=== PATIENT | male | born 1995 ===

== ENCOUNTER 2018-01-20 15:04 | Outpatient (REF) | payer OTHER, SELFPAY ==
[2018-01-20 21:42] LABS: HCT 39.3 % (40.0-50.0); HGB 12.9 g/dL (13.5-17.5); Mean Corp. HGB Concentration 32.8 g/dL (32.0-36.0); Mean Corpuscular Hemoglobin 30.9 pg (27.0-33.0); Mean Platelet Volume 12.3 fL (8.0-11.0); Platelet Count 177 x1000/uL (130-400); RBC 4.18 m/cumm (4.50-6.00); RBC Distribution Width 12.9 % (11.8-14.1)
[2018-01-20 22:13] LABS: Ferritin 71 ng/mL (8-388)
== END 2018-01-20 15:24 ==
LOC: NCHCN 15:04
PROVIDERS: Referring Provider Family Medicine; Visit Provider Family Medicine
DX: R53.83 Other fatigue (principal); J06.9 Acute upper respiratory infection, unspecified; M26.69 Other specified disorders of temporomandibular joint; F41.1 Generalized anxiety disorder
CPT/HCPCS: 85027; 82728; 84443